=== PATIENT | male | born 1970 | race Two or more races ===

== ENCOUNTER 2021-10-27 17:59 | Emergency (ER) | payer OTHER ==
[~2021-10-27] VITALS: Ht 165.1 cm; Wt 65.8 kg
[2021-10-27] MEDS ORDERED: HYDR25SU13 RC (19:16)
[2021-10-27] MEDS ORDERED: POLY17PO4 PO (19:17)
[2021-10-27 19:29] VITALS: BP 130/73
--- NOTE | 2021-10-27 19:29 | NUR ---
Patient discharged to home in stable condition. Written and verbal after care instructions given. Patient verbalizes understanding of instruction.
== END 2021-10-27 19:29 | disposition home or self-care (01) ==
LOC: ER 19:09
DX: K64.8 Other hemorrhoids (principal); K59.00 Constipation, unspecified; Z90.89 Acquired absence of other organs; Z79.899 Other long term (current) drug therapy